=== PATIENT | male | born 1980 | race Hispanic/Latino ===

== ENCOUNTER 2021-07-02 09:21 | Day surgery (SDC) | payer MEDICARE ==
[~2021-07-02] VITALS: Ht 175.3 cm; Wt 119.7 kg
[~2021-07-02 09:21] MED LIST: 0.9%NACL 1000ML 1,000 ML IV ONE; ACET-66 PO; AMLO-258 PO; CARV6.25 PO
[2021-07-02 09:30] VITALS: BP 177/94
[2021-07-02] MEDS ORDERED: PROPOFOL 10 MG/ML 20ML VIAL IV ONE ×2 (11:05)
[2021-07-02] MEDS ORDERED: LIDOCAINE HCL 1% 20 ML VIAL ONE (11:05)
[2021-07-02 11:20] VITALS: BP 151/86
[2021-07-02 11:40] VITALS: BP 131/87
== END 2021-07-02 11:50 | disposition home or self-care (01) ==
LOC: DAH 09:21 → ENDO 09:21
PROVIDERS: ATTEND Internal Medicine Gastroenterology
DX: R93.3 Abnormal findings on diagnostic imaging of other parts of digestive tract (principal); Z20.822 Contact with and (suspected) exposure to COVID-19; K76.0 Fatty (change of) liver, not elsewhere classified; K86.89 Other specified diseases of pancreas; J45.909 Unspecified asthma, uncomplicated; I10 Essential (primary) hypertension; Z80.0 Family history of malignant neoplasm of digestive organs; Z98.890 Other specified postprocedural states; Z90.89 Acquired absence of other organs
CPT/HCPCS: 43259; 87635; A4215 ×2; A4221; A4222; A4223; A4606; A4620; A4663; C9803; J2704 ×2; J7030

== ENCOUNTER → 2022-12-03 | Outpatient (CLI) | payer MEDICARE ==
[~2022-12-03] MED LIST changes: -0.9%NACL 1000ML 1,000 ML IV ONE
== END | disposition home or self-care (01) ==
LOC: RAH 10:01
PROVIDERS: ATTEND Internal Medicine
DX: K76.0 Fatty (change of) liver, not elsewhere classified (principal)
CPT/HCPCS: 76700

== ENCOUNTER → 2024-06-01 | Outpatient (CLI) | payer MEDICARE ==
--- NOTE | 2024-06-02 10:09 | HMCSR ---
APPROVED REPORT EXAM: Two-dimensional and M-mode echocardiogram with Doppler and color Doppler. INDICATION ICD: Chest Pain Contrast Details Indication: Rule out PFO Agent/Amount Used: Agitated Saline 2D Dimensions RVDd4.9 cmLVEF(%)49.6 (>50%)LVED Vol(simp.)128.0 mL IVSd1.1 (0.7-1.1cm)FS(%)25 %LVES Vol(simp.)62.8 mL LVDd4.8 (3.8-5.6cm)LA (2D)4.5 (1.6-4.0cm)LVEF(%, simp.)51 % PWd1.0 (0.7-1.1cm)Ao Root(2D)3.5 (2.0-3.7cm)LA ESV INDEX (4CH)20.70 mL/m2 IVSs1.3 cmLVOT diam2.5 (1.8-2.4cm)LA ESV INDEX (2CH)27.00 mL/m2 LVDs3.6 (2.5-4.0cm)LA ESV INDEX (BP)26.90 mL/m2 PWs1.2 cm M-Mode Dimensions EPSS0.9 cm LA (MM)4.4 (1.6-4.0cm) Ao Root(MM)3.3 (2.0-3.7cm) Aortic Valve AoV VTI0.3 mAo Mean GR3.0 mmHgLVOT VTI0.19 m JOSEF (VMAX)3.7 cm2AVA (VTI) 3.7 cm2 Mitral Valve MV E Vmax44.6 cm/sDECEL Dyyl068 ms MV A Vmax57.7 cm/sP 1/2 T98 ms E/A ratio0.8MVA (PHT)2.3 cm2 TDI E/E' Medial9.5E/E' Lateral6.5 Medial E' Peak V4.70 cm/sLateral E' Peak V6.90 cm/s Pulmonary Valve PV VTI0.17 mPV Mean GR2 mmHg Left Ventricle The left ventricle is normal size. There is normal LV segmental wall motion. There is normal left mary tricular wall thickness. LVEF is 50-55%. The left ventricular diastolic function is normal. Right Ventricle The right ventricle is moderately dilated. The right ventricular systolic function is normal. Atria The left atrium size is normal. Interatrial septum is intact without evidence of ASD or PFO by agitat ed saline The right atrium size is normal. Aortic Valve The aortic valve is normal in structure. No aortic regurgitation is present. There is no aortic valvu lar stenosis. Mitral Valve The mitral valve is normal in structure. There is no mitral valve regurgitation noted. There is no mi tral valve stenosis. Tricuspid Valve The tricuspid valve is normal in structure. There is no tricuspid valve regurgitation noted. Pulmonic Valve The pulmonary valve is normal in structure. There is no pulmonic valvular regurgitation. Great Vessels The aortic root is normal in size. The IVC is normal in size and collapses >50% with inspiration. Pericardium There is no pericardial effusion. Conclusion LVEF is 50-55%.
== END | disposition home or self-care (01) ==
LOC: RAH 10:00
PROVIDERS: ATTEND Internal Medicine Cardiovascular Disease
DX: R07.9 Chest pain, unspecified (principal)
CPT/HCPCS: 93306

== ENCOUNTER → 2024-07-12 | Outpatient (CLI) | payer MEDICARE ==
--- NOTE | 2024-07-14 08:03 | HMCSR ---
APPROVED REPORT Laterality: Bilateral Indications g45.9 Doppler Spectral Velocity Analysis PSV / EDVPSV / EDV ECA (R) 122 / cm/sECA (L) 105 / cm/s dICA (R) 80 / 35 cm/sdICA (L) 74 / 29 cm/s David (R) 52 / 19 cm/smICA (L) 77 / 32 cm/s pICA (R) 66 / 19 cm/spICA (L) 67 / 21 cm/s dCCA (R) 74 / 22 cm/sdCCA (L) 89 / 27 cm/s mCCA (R) 80 / 21 cm/smCCA (L) 109 / 27 cm/s pCCA (R) 107 / 17 cm/spCCA (L) 103 / 25 cm/s Vert (R) 32 / cm/sVert (L) 32 / cm/s Subl. (R) 124 / cm/sSubl. (L) 128 / cm/s ICA/CCA 0.75ICA/CCA 0.71 Technologist Impression Minimal plaque noted in the bilateral carotids, without hemodynamic significance. Bilateral vertebral arteries appear antegrade. Conclusion As above. Conclusion As above.
== END | disposition home or self-care (01) ==
LOC: SHCH 15:40
PROVIDERS: ATTEND Internal Medicine Cardiovascular Disease
DX: G45.9 Transient cerebral ischemic attack, unspecified (principal)
CPT/HCPCS: 93880

== ENCOUNTER → 2024-10-31 | Outpatient (CLI) | payer MEDICARE ==
[~2024-10-31] MED LIST changes: +IOHEXOL 350 MG/ML 100ML INFUS..BTL IV ONE
--- NOTE | 2024-10-31 10:31 | HMCIMG ---
CT CARDIAC ANGIO W/CONT. CCTA HISTORY: Shortness of breath COMPARISON: None TECHNIQUE: Multiple sequential axial images of the chest were obtained along with the CT angiogram of the chest study. Patient was given 100 cc of Omnipaque through intravenous route. FINDINGS: There is no evidence of pulmonary nodule or parenchymal disease. No pleural effusion or pericardial effusion is seen. There is no evidence of pneumothorax. There are normal size mediastinal and hilar lymph nodes. The heart is not enlarged. Degenerative changes of the thoracolumbar spine are present. IMPRESSION: 1. No evidence of pulmonary nodule or effusion is seen. Please see CT angiogram report of coronary arteries.
--- NOTE | 2024-11-02 10:31 | CARDIOLOGY ---
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 A dedicated, limited window, coronary imaging protocol was used, with single breath-hold, retrospective ECG gating, and automated arrhythmia rejection. 100 cc of low osmolar contrast agent: Omnipaque 350 was delivered via a 18-gauge IV catheter in the right antecubital fossa, using a power injector and followed by 60 cc of normal saline bolus as a chaser. Collimated images were reformatted at 0.5 mm intervals, and sent to an offline independent workstation for interpretation, using 3D anatomic reconstructions: Curved multiplanar reconstructions, maximum intensity projections, and multiplanar imaging. No metoprolol was administered prior to scanning due to low baseline heart rate. 0.8 mg SL nitroglycerin was given. CORONARY ARTERY DESCRIPTIONS: The coronary arteries arise in normal position. Left main coronary artery: Normal caliber vessel that bifurcates into the LAD and LCx. No stenosis. Left anterior descending coronary artery: Normal caliber vessel and gives rise to diagonal and septal branches. No stenosis. Left circumflex coronary artery: Normal caliber, nondominant and gives rise to a large OM branch. No stenosis. Right coronary artery: Large, dominant vessel giving rise to the PL and PDA branches. No stenosis. CAD-RADs: 0, absence of CAD. Thoracic Aorta: Normal diameter. Heather Rodriguez MD Cardiovascular Disease [facility] HEATHER RODRIGUEZ MD Nov 02, 2024 10:31
== END | disposition home or self-care (01) ==
LOC: RAH 08:53
PROVIDERS: ATTEND Internal Medicine Cardiovascular Disease
DX: R06.02 Shortness of breath (principal); M47.815 Spondylosis without myelopathy or radiculopathy, thoracolumbar region
CPT/HCPCS: 75574; Q9967